=== PATIENT | male | born 1965 ===

== ENCOUNTER → 2022-03-13 09:50 | Outpatient (CLI) | payer OTHER, SELFPAY ==
--- NOTE | 2022-03-13 09:55 | DI.RAD.S_ITS ---
PROCEDURE: XR HAND RT MIN 3V INDICATIONS: pain of right hand and left ankle TECHNIQUE: 3 views of the hand(s) acquired. COMPARISON: None. FINDINGS: Bones: No fractures or dislocations. Carpal bones are normally aligned. Osteoarthritic changes are noted throughout right hand and wrist joints. No suspicious bony lesions. Soft tissues: No suspicious soft tissue calcifications. IMPRESSION: No gross acute right hand fracture or dislocation. Right hand and wrist joint osteoarthritis. Dictated by: Rancho Noriega M.D. on 03/13/2022 at 13:25 Approved by: Rancho Noriega M.D. on 03/13/2022 at 13:25
--- NOTE | 2022-03-13 09:55 | DI.RAD.S_ITS ---
PROCEDURE: XR ANKLE LT MIN 3V INDICATIONS: pain of right hand and left ankle TECHNIQUE: 3 views of the ankle were acquired. COMPARISON: None. FINDINGS: Bones: There is prior fixation of medial malleolus with surgical screw in place. No gross hardware loosening or failure. No acute fractures or dislocations. Ankle mortise is normally aligned. No suspicious bony lesions. Soft tissues: No tibiotalar joint effusion. Achilles tendon appears normal. IMPRESSION: Postsurgical changes in medial malleolus. No gross hardware loosening or failure. No acute ankle fracture or dislocation. Ankle mortise is congruent. Dictated by: Rancho Noriega M.D. on 03/13/2022 at 13:25 Approved by: Rancho Noriega M.D. on 03/13/2022 at 13:27
== END ==
PROVIDERS: Referring Provider Internal Medicine Cardiovascular Disease; Visit Provider Internal Medicine Cardiovascular Disease
DX: M19.041 Primary osteoarthritis, right hand (principal); M19.031 Primary osteoarthritis, right wrist; M25.572 Pain in left ankle and joints of left foot; M25.641 Stiffness of right hand, not elsewhere classified; Z98.890 Other specified postprocedural states
CPT/HCPCS: 73130; 73610

== ENCOUNTER → 2022-04-09 10:53 | Outpatient (CLI) | payer OTHER, SELFPAY ==
--- NOTE | 2022-04-09 11:00 | DI.RAD.S_ITS ---
PROCEDURE: XR LUMBAR SPINE 2-3V INDICATIONS: ANKLE/ LUMBAR SPINE PAIN TECHNIQUE: 3 views of the lumbar spine were acquired. COMPARISON: None. FINDINGS: Bones: 5 [id number] vertebrae are present. There is mild 2 mm grade 1 retrolisthesis of L1 on L2 and L2 on L3. No vertebral body compression fractures. No suspicious bony lesions. Mild multilevel degenerative endplate changes. Facet hypertrophy is seen from L3-4 through L5-S1. Soft tissues: Overlying bowel gas pattern is normal. No suspicious soft tissue calcifications. IMPRESSION: Mild spondylosis and degenerative spondylolisthesis. Lumbar spine MRI could be performed for further evaluation if indicated clinically. Approved by: Beni Wallace M.D. on 04/09/2022 at 13:20
--- NOTE | 2022-04-09 11:00 | DI.RAD.S_ITS ---
PROCEDURE: XR ANKLE RT MIN 3V INDICATIONS: ANKLE/ LUMBAR SPINE PAIN TECHNIQUE: Three views of the ankle were acquired. COMPARISON: None. FINDINGS: Bones: No acute fractures or dislocations. Ankle mortise is normally aligned. No suspicious bony lesions. Tiny posterior calcaneal enthesophyte. Soft tissues: No suspicious soft tissue calcification. IMPRESSION: No acute osseous abnormality. If the symptoms persist, consider cross sectional imaging such as MRI or CT for further assessment. Approved by: Beni Wallace M.D. on 04/09/2022 at 13:21
== END ==
PROVIDERS: Referring Provider Internal Medicine Cardiovascular Disease; Visit Provider Internal Medicine Cardiovascular Disease
DX: M47.816 Spondylosis without myelopathy or radiculopathy, lumbar region (principal); M47.817 Spondylosis without myelopathy or radiculopathy, lumbosacral region; M43.16 Spondylolisthesis, lumbar region; M54.50 Low back pain, unspecified; M25.571 Pain in right ankle and joints of right foot
CPT/HCPCS: 72100; 73610